=== PATIENT | male | born 1950 | race Caucasian/White ===

== ENCOUNTER 2022-04-28 07:15 | Emergency (ER) | payer MEDICARE, OTHER ==
[2022-04-28 08:23] LABS: CORONAVIRUS COVID-19 NAA NEGATIVE (NEGATIVE)
[2022-04-28] MEDS ORDERED: Sodium Chloride 0.9% 1,000 ML IV ONE (08:28)
[2022-04-28] MEDS ORDERED: Iopamidol 755 Mg/ML 100 ML Bottle IVPUSH ONE (09:17)
[2022-04-28] MEDS: Sodium Chloride 0.9% 10 ML Syringe FLUSH PRN ×2 (09:23→09:45)
[2022-04-28] MEDS ORDERED: Sodium Chloride 0.9% 100 ML IV SCH (09:30)
== END 2022-04-28 11:29 | disposition home or self-care (01) ==
LOC: JD.ED 07:15 → SUPCPDRO 07:15 → JD.ED 11:29
DX: J40 Bronchitis, not specified as acute or chronic (principal); J32.9 Chronic sinusitis, unspecified; D64.9 Anemia, unspecified; I10 Essential (primary) hypertension; E11.9 Type 2 diabetes mellitus without complications; Z20.822 Contact with and (suspected) exposure to COVID-19; Z87.891 Personal history of nicotine dependence; Z86.16 Personal history of COVID-19; Z86.73 Personal history of transient ischemic attack (TIA), and cerebral infarction without residual deficits; Z90.49 Acquired absence of other specified parts of digestive tract
CPT/HCPCS: 0241U; 36415; 70450; 71045; 71275; 80053; 83605; 85025; 85610; 86140; 87040; 87651; 93005; 96360; 96361; 99284; J3490; J7030; Q9967